=== PATIENT | male | born 1985 | race Hispanic/Latino ===

== ENCOUNTER 2019-01-16 03:16 | Emergency (ER) | payer SELFPAY ==
[2019-01-16] MEDS ORDERED: Neomycin-Polymyxin-Hc 7.5 ML BOT ONE (03:56)
== END 2019-01-16 04:13 | disposition home or self-care (01) ==
LOC: MADERS 03:16
DX: H10.9 Unspecified conjunctivitis (principal); F17.210 Nicotine dependence, cigarettes, uncomplicated
CPT/HCPCS: 36416; 99283